=== PATIENT | female | born 1930 | race Caucasian/White ===

== ENCOUNTER → 2017-05-01 | Outpatient (CLI) | payer MEDICARE ==
[~2017-05-01] MED LIST: ACCUNEB SOL3 ML/NE1 IN; AMIODARONE 200200 MG PO; AMLODIPINE10 MG PO; AMLODIPINE5 M1 PO; ASPIRIN 81MG TA81 MG PO; ATORVASTATIN CA20 M1 PO; CARAFATE1 GM/10 ML PO; CARVEDILOL6.25 MG PO; CENTRUM SILVER1 TA1 PO; CENTRUM SILVER1 TAB PO; CIPRO 500MG TA500 MG PO; CLOPIDOGREL75 MG PO; DETROL 1MG TAB1 MG PO; DOCUSATE SODIU100 MG PO; ELIQUIS5 MG PO; FLAGYL500 MG PO; FUROSEMIDE 20MG20 MG FT; FUROSEMIDE 40MG40 M1 PO; IMDUR ER30 MG PO; INVANZ 1 GM1 GM IV; IPRATROPIUM 2.2.5 ML INH; ISOSORBIDE MONO30 MG PO; ISOSORBIDE MONO60 M1 PO; LEVOFLOXACIN 5500 MG PO; LEVOTHYROXINE0.05 MG PO; LISINOPRIL 10MG10 MG PO; LISINOPRIL10 MG PO; LOPRESSOR 25MG.25 MG PO; MELOXICAM15 MG PO; METOPROLOL SUCC50 M2 PO; MIRALAX17 GM/PACK PO; MUCINEX600 M1 PO; NAPROSYN 500MG500 MG PO; NORVASC5 MG PO; OMEPRAZOLE40 MG PO; OMNICEF 300 MG300 MG PO; ONDANSETRON4 M1 PO; OXYBUTYNIN CHLO15 MG PO; OXYBUTYNIN ER15 MG PO; PANTOPRAZOLE SO40 MG PO; PERCOCET1 TAB PO; PLAVIX75 MG PO; POTASSIUM CHLO20 ME2 PO; PRAVASTATIN 20M20 MG PO; PREDNISONE 10MG10 MG PO; PREDNISONE 20MG20 MG PO; PREVACID 30MG C30 M1 OR; PREVACID 30MG C30 M1 PO; PRILOSEC20 MG PO; PROMETHAZINE D473 ML PO; PROTONIX 40MG T40 MG PO; PROTONIX40 MG PO; QUINAPRIL20 MG OR; TOLTERODINE TART1 MG PO; TRAMADOL50 M1 PO; VITAMIN D31000 IU PO; XARELTO15 MG PO; ZAROXOLYN 2.5M2.5 MG PO; ZITHROMAX Z-PA250 M2 PO; ZOFRAN ODT8 MG PO
--- NOTE | 2017-05-01 17:25 | RADIOLOGY REPORT PS360 ---
[id number] VIEWS HISTORY: Left shoulder pain MARQUES SHOULDER PAIN ORDERING PHYSICIAN: Bandar Martínez MD PATIENT AGE: 87 years COMPARISON: None FINDINGS: Severe osteoarthritic changes involve the glenohumeral joint with loss of joint space, osteosclerosis, and osteophyte formation. There is some deformity of the left humeral head is well with notching in the humeral neck region. No acute fracture or dislocation. No lytic or blastic change. IMPRESSION: Severe osteoarthritis of the left shoulder
--- NOTE | 2017-05-01 17:27 | RADIOLOGY REPORT PS360 ---
[id number] VIEWS HISTORY: Right shoulder pain MARQUES SHOULDER PAIN ORDERING PHYSICIAN: Bandar Martínez MD PATIENT AGE: 87 years COMPARISON: 12/19/2015 FINDINGS: Severe osteoarthritic changes involving the glenohumeral joint with severe subacromial stenosis with loss of the acromiohumeral space consistent with rotator cuff tear. There is superior elevation of the humeral head with notching of the humeral neck medially from the glenoid. These findings are similar when compared to the previous exam. No acute fracture or dislocation evident. IMPRESSION: 1. Severe osteoarthritis with rotator cuff tear and loss of the acromiohumeral space as detailed above overall not significant changed
== END ==
LOC: RAD 16:18
DX: M25.511 Pain in right shoulder (principal); M25.512 Pain in left shoulder

== ENCOUNTER → 2017-05-08 | Outpatient (CLI) | payer MEDICARE ==
--- NOTE | 2017-05-08 14:55 | ST MODIFIED BARIUM SWALLOW ---
SUBJECTIVE-DYSPHAGIA Date: 05/08/17 Time: 1100 Eval Type: Initial Certification - Admitted Date: Primary Diagnosis: Reason for Consult: DYSPHAGIA Pt/Caregiver Concerns: COUGHING/CHOKING WHILE EATING AND DRINKING Onset of symptoms- Symptoms have worsened? NO improved? NO resolved? NO since onset. Current Diet: REGULAR/THINS Allergies Coded Allergies: No Known Allergies (11/21/16) Home Medications Active Scripts OXYCODONE HCL/ACETAMINOPHEN (Percocet 5-325 MG Tablet) 1-2 TAB PO Q6HP PRN PAIN PER PATIENT #60 TAB Prov: 12/24/15 Reported Medications Amlodipine Besylate (Amlodipine) 10 MG PO DAILY PROMETHAZINE/DEXTROMETHORPHAN (Promethazine-Dm Syrup) 10 ML PO Q4HP PRN COUGH #120 ML Metoprolol Tartrate (Lopressor) 25 MG PO BID CHOLECALCIFEROL (VITAMIN D3) (Vitamin D) 1,000 IUNITS PO WEEKLY Oxybutynin Chloride (Oxybutynin Chloride ER) 15 MG PO DAILY #30 TER Lisinopril 5 MG PO DAILY CLOPIDOGREL BISULFATE (Clopidogrel 75MG) 75 MG PO DAILY Pantoprazole Sodium (Pantoprazole 40MG) 40 MG PO BID Levothyroxine Sodium (Levothyroxine) 0.05 MG PO DAILY Isosorbide Mononitrate (Isosorbide Mononitrate ER) 30 MG PO DAILY Rivaroxaban (Xarelto) 15 MG PO DAILY Is this assessment r/t stroke? No OBJECTIVE COMMUNICATION/COGNITION Barriers to communication/cog? No ORAL-MOTOR STRUCTURE/FUNCTION Structure/Function WFL: Labial, Buccal, Lingual, Velar, Mandibular. Facial Asymmetry None Laryngeal Function Strong: Voluntary Cough, Throat Clearing. Vocal Quality Normal Dentition Dentures RESPIRATORY STATUS/HISTORY Is resp status/hx a concern? No DYSPHAGIA SIGNS W/CONSISTENCY Any S/S of Dysphagia? Yes VIDEO SWALLOW REPORT Radiologist: Danilo KENNEDY,Cade Montesinos Level of consciousness: Alert Position (degrees): 90 ORAL STAGE Consistencies used for study: Thin, Pudding, Solid, Pill - WFL: Bolus Formation:, Initiation of Swallow:. - No: Serjio.spilled into pharynx, Oral Residue. PHARYNGEAL STAGE Consistencies used for study: Thin, Pudding, Solid, Pill Delayed Swallow Reflex? No Epiglottic Closure WFL Penetration-Laryngeal Vestibul Yes - Aspiration? No Pharyngeal Residue? Yes ASSESSMENT/PLAN ASSESSMENT Impression Ms. Oropeza, an 87 year old female, was referred for a MBS by her physcian, Dr. Martínez. Ms. Oropeza reports she has difficulty eating and drinking at times. Her caregiver reports that she has difficulty with meats and taking her medications. Ms. Oropeza was given the following consistenices: thins via straw and open cup, pudding, regular, and pill with thin wash. The following signs of dysphagia were noted: penetration into laryngeal vestibule with thin liquids via straw and mulitple boluses for pill with thin wash and pharyngeal residue with all consistencies but cleared with dry swallow. It is recommended that Ms. Oropeza remain on current diet but impliment compensatory strategies: chin tuck with liquids, alternate between bite and sip, small bites/small sips, dry swallow after each bolus, and take medications 1 at a time. Therapy is not warranted at this time. Should problems continue, Ms. Oropeza should contact her primary care physician. PLAN SWALLOW GUIDELINES Standard Aspiration Prec., Head Positioning (Chin Down), Double Swallow, Alt Bite w/Sip Thru Meal Rehab Medicare G Code Plan Medicare/ Code eligible? Yes Therapy Discipline Plan: CARE MANAGER CNA PLAN OF CARE G Code Current Status: SWALLOWING (G8996) Current Status Modifier: 1%-19% IMPAIRED (CI) G Code Goal Status: SWALLOWING (G8997) Goal Status Modifier: 1%-19% IMPAIRED (CI) G Code Discharge Status: SWALLOWING (G8998) Discharge Status Modifier: 1%-19% IMPAIRED (CI) If pt's [facility] benefits exhausted If patient's Medicare benefits are exhausted, please review: #Min Spent: 40 at 1454
--- NOTE | 2017-05-09 15:06 | RADIOLOGY REPORT PS360 ---
UGI SERIES W/ AIR HISTORY: DYSPHAGIApatient states she had difficulty with solid foods more than liquids . Difficulty & occasional discomfort with swallowing Patient Age: 87 years: Female Ordering Physician: Bandar Martínez MD TECHNIQUE: Air-contrast UGI. Performed by Dr. Carrasco prior to subsequent modified barium swallow for dysphasia Fluoroscopy time 1 minute 22 seconds COMPARISON :Subsequent modified barium swallow from today used as comparison. Also previous chest film from July 2016 FINDINGS I would note this patient was difficult this study because she was somewhat limited in her mobility TheT AVR aortic valve replacement is noted on the images The cervical esophagus will be discussed in greater detail on the modified barium swallow report performed along with speech pathologist Delmy. There is evidence of deep penetration and minimal aspiration seen on the initial UGI study at the hypopharynx... Marginal at C-spine yield indentation upon the posterior aspect cervical esophagus. Cricopharyngeus muscle appears normal The thoracic esophagus is generous in caliber and overall decreased peristalsis with occasional episodes of very contractions.. There was mild GE reflux noted at the distal esophagus along with a small sliding hiatal hernia. cleft like feature here most likely reflects the hiatal hernia wrapping about the diaphragmatic hiatus. Interestingly on June [address] showed a a prominent hiatal hernia , however we do not see such today even with the patient right lateral & supine position. With mild Valsalva. There is less optimal coating of the stomach due to patient's inability to roll completely on the fluoroscopy table, but I see no ulcer nor discrete filling defect within the stomach itself. If anything there is relative lack mucosal folds. Patient does not describe significant symptoms however at this level. Nor filling defect in the duodenal bulb. Duodenal loop appears normal Patient states she had a negative endoscopy from I believe Dr. Lewis but I see no record of such in our [facility] system IMPRESSION 1. deep penetration and minimal aspiration with liquid barium. See modified barium swallow report additional details 2. Moderate anterior marginal osteophytes yield indentation, posterior aspect the cervical esophagus. Conceivably may contribute to patient's dysphagia symptoms.No restricting lesions at the cervical esophagus. No web or left or lesion otherwise seen. 3.. Generous caliber thoracic esophagus. Overall there is slight the nasal peristalsis with only occasional tertiary contractions noted 4. Mild GE reflux with Small slight hiatal hernia We only identified a very small hiatal hernia today. Surprisingly the Previous 2016 CT showed a large hiatal hernia. 05/08/2017 4.. Unremarkable stomach, pylorus and duodenal bulb
--- NOTE | 2017-05-09 15:14 | RADIOLOGY REPORT PS360 ---
ESOPHAGUS W/CINERADIOGRAPHY 70 esophagram HISTORY: DYSPHAGIA difficulty eating meat. Solid foods. Pain at base of the throat neck. Patient Age: 87 years: Female Ordering Physician: Bandar Martínez MD TECHNIQUE: . Study performed conjunction with these pathologist Delmy mccarty. 2 minute 58 seconds fluoroscopy COMPARISON :Esophagram from earlier today FINDINGS Boiling Off Winder view demonstratedPostsurgical changes with numerou vascular clips s... Seen at the right neck. Probably from a right carotid endarterectomy although the patient did not specify confirm such Patient study the lateral projection with video esophagram recording. Various barium consistencies utilized to study swallowing mechanism. Thin liquid barium by straw and cup. Pudding. Solid food consistency and pilll Thin barium from cup, and with straw: Penetration observed into the laryngeal vestibule particularly with thin liquids via straw and with repeated swallowing boluses.. Fairly good strength overall all occasional deep penetration. There was some minimal aspiration evident on the initial UGI prior to this study. Good oral phase. Mechanical soft barium on cereal bar: Adequate strength the swallowing. Scant residual. Mild penetration with repeated swallowing thin liquid barium wash Barium pill was ingested . Difficulty and AP movement of the patella but once this it reached the back of the tongue it readily cleared with no restriction. IMPRESSION: 1. Repeated penetration into laryngeal vestibule, with seen with with thin liquids mainly via straw, and with repeated drinking with multiple boluses. See the speech pathologist recommendations. 2. Regarding the patient's dysphagia symptoms towards lower neck, only would note moderate/generous anterior marginal osteophytes of the C-spine, which do impinge upon the posterior esophagus.-This is only of the feature that may conceivably contribute to dysphagia symptoms. . ( The cricopharyngeus muscle appears normal and there are no prominent restrictions or web nor lesion otherwise seen.) . The generous caliber thoracic esophagus again noted as discussed on separate UGI report
== END ==
LOC: RAD 05-05 09:00
DX: R13.10 Dysphagia, unspecified (principal); Z87.19 Personal history of other diseases of the digestive system
CPT/HCPCS: G8996; G8997; G8998

== ENCOUNTER → 2017-08-09 | Outpatient (CLI) | payer MEDICARE ==
[2017-08-09 18:52] LABS: HEMOGLOBIN 9.5 g/dL (12.2-16.2); LYMPH # 1.7 K/mm3 (0.7-4.5)
[2017-08-09 19:22] LABS: BUN 44 mg/dL (7-18)
[2017-08-09 19:25] LABS: GFR (ESTIMATED) 28 ML/MIN (59-)
== END ==
LOC: LAB 18:41
PROVIDERS: Nurse Practitioner Family
DX: I10 Essential (primary) hypertension (principal); N39.0 Urinary tract infection, site not specified; R31.9 Hematuria, unspecified

== ENCOUNTER → 2017-08-23 | Outpatient (CLI) | payer MEDICARE ==
[2017-08-23 15:13] LABS: LYMPH # 1.7 K/mm3 (0.7-4.5); LYMPH % 27.2 % (10-50.0)
[2017-08-23 15:19] LABS: HEMOGLOBIN 10.7 g/dL (12.2-16.2)
[2017-08-23 16:06] LABS: BUN 41 mg/dL (7-18); GFR (ESTIMATED) 33 ML/MIN (59-)
== END ==
LOC: LAB 14:35
PROVIDERS: Nurse Practitioner Family
DX: I10 Essential (primary) hypertension (principal)